=== PATIENT | male | born 1995 | race Two or more races ===

== ENCOUNTER 2022-10-14 09:05 | Emergency (ER) | payer OTHER ==
[~2022-10-14] VITALS: Ht 160 cm; Wt 86.6 kg
[2022-10-14] MEDS ORDERED: IV NS 0.9% 1,000 ML BAG IV ONE (09:30)
[2022-10-14 09:36] LABS: BASOPHILS % (AUTO) 0.7 % (0.0-2.0); EOSINOPHILS # (AUTO) 0.1 K/uL (0.0-0.7); EOSINOPHILS % (AUTO) 1.9 % (0.0-6.0); HEMATOCRIT 47 % (39-51); HEMOGLOBIN 15.9 g/dL (13.5-17.5); LYMPHOCYTES # (AUTO) 2.1 K/uL (0.8-4.8); LYMPHOCYTES % (AUTO) 33.8 % (20.0-44.0); MEAN CORPUSCULAR HEMOGLOBIN 29 PG (26.0-33.0); MEAN CORPUSCULAR HGB CONC 34 g/dl (31.0-36.0); MEAN CORPUSCULAR VOLUME 87 fL (80-96); MONOCYTES # (AUTO) 0.6 K/uL (0.1-1.30); MONOCYTES % (AUTO) 10.3 % (2.0-12.0); NEUTROPHILS # (AUTO) 3.3 K/uL (1.8-8.9); NEUTROPHILS % (AUTO) 53.3 % (43.0-81.0); PLATELET COUNT (AUTO) 316 K/uL (150-450); RED BLOOD CELL COUNT(AUTO) 5.39 MIL/uL (4.5-6.0); RED CELL DISTRIBUTION WIDTH 13.2 % (11.5-15.0); WHITE BLOOD COUNT (AUTO) 6.3 K/uL (4.3-11.0)
[2022-10-14 09:49] LABS: CALCIUM, SERUM 9.2 mg/dL (8.5-10.1); CARBON DIOXIDE 26 mmol/L (21-32); CHLORIDE 104 mmol/L (98-107); CREATININE 0.9 mg/dL (0.6-1.3); GLUCOSE 108 mg/dL (74-106); POTASSIUM 3.5 mmol/L (3.5-5.1); SODIUM SERUM 139 mmol/L (136-145); UREA NITROGEN, BLOOD 11 mg/dL (7-18)
[2022-10-14 09:53] LABS: MAGNESIUM 1.9 mg/dL (1.8-2.4); PHOSPHORUS 2.4 mg/dL (2.5-4.9)
[2022-10-14 10:03] LABS: THYROID STIMULATING HORMONE 1.178 uIU/mL (0.358-3.74)
[2022-10-14 10:56] VITALS: BP 110/68; TEMP 98.4; O2SAT 97
== END 2022-10-14 10:57 | disposition home or self-care (01) ==
LOC: ER 09:11
DX: R55 Syncope and collapse (principal); Z60.2 Problems related to living alone
CPT/HCPCS: 99285; 96360; 71045; 93005; 85025; 80048; 83735; 84100; 36415; 84443; 84484; 82962; J7030

== ENCOUNTER 2022-10-20 20:52 | Emergency (ER) | payer OTHER ==
[~2022-10-20] VITALS: Ht 160 cm; Wt 86.6 kg
[2022-10-20 21:53] LABS: BASOPHILS # (AUTO) 0.1 K/uL (0.0-0.2); BASOPHILS % (AUTO) 0.8 % (0.0-2.0); EOSINOPHILS # (AUTO) 0.1 K/uL (0.0-0.7); EOSINOPHILS % (AUTO) 1.2 % (0.0-6.0); HEMATOCRIT 50 % (39-51); HEMOGLOBIN 16.8 g/dL (13.5-17.5); LYMPHOCYTES # (AUTO) 1.9 K/uL (0.8-4.8); LYMPHOCYTES % (AUTO) 22.7 % (20.0-44.0); MEAN CORPUSCULAR HEMOGLOBIN 29 PG (26.0-33.0); MEAN CORPUSCULAR HGB CONC 34 g/dl (31.0-36.0); MEAN CORPUSCULAR VOLUME 86 fL (80-96); MONOCYTES # (AUTO) 0.9 K/uL (0.1-1.30); MONOCYTES % (AUTO) 10.9 % (2.0-12.0); NEUTROPHILS # (AUTO) 5.3 K/uL (1.8-8.9); NEUTROPHILS % (AUTO) 64.4 % (43.0-81.0); PLATELET COUNT (AUTO) 342 K/uL (150-450); RED BLOOD CELL COUNT(AUTO) 5.76 MIL/uL (4.5-6.0); WHITE BLOOD COUNT (AUTO) 8.3 K/uL (4.3-11.0)
[2022-10-20 22:06] LABS: CALCIUM, SERUM 9.8 mg/dL (8.5-10.1); CREATININE 1.1 mg/dL (0.6-1.3); POTASSIUM 3.3 mmol/L (3.5-5.1)
[2022-10-20 22:48] VITALS: BP 133/81; TEMP 98.7; O2SAT 100
== END 2022-10-20 22:48 | disposition home or self-care (01) ==
LOC: ER 20:54
DX: R00.2 Palpitations (principal); Z60.2 Problems related to living alone
CPT/HCPCS: 36415; 80048-TC; 85025-TC

== ENCOUNTER 2022-10-27 00:35 | Emergency (ER) | payer OTHER ==
[~2022-10-27] VITALS: Ht 160 cm; Wt 82.6 kg
[2022-10-27] MEDS ORDERED: ALPRAZOLAM 0.25 MG TABLET ONE (00:59)
[2022-10-27] MEDS ORDERED: ALPRAZOLAM 0.25 MG TABLET PO ONE (01:00)
[2022-10-27 01:17] VITALS: BP 141/83; TEMP 98; O2SAT 97
== END 2022-10-27 01:44 | disposition home or self-care (01) ==
LOC: ER 00:50
DX: F41.9 Anxiety disorder, unspecified (principal)

== ENCOUNTER 2022-11-28 12:28 | Emergency (ER) | payer OTHER ==
[~2022-11-28] VITALS: Ht 160 cm; Wt 77.1 kg
[2022-11-28] MEDS ORDERED: LORAZEPAM 1 MG TABLET ONE (12:41)
[2022-11-28] MEDS ORDERED: LORAZEPAM 1 MG TABLET PO ONE (13:00)
[2022-11-28 13:06] LABS: BASOPHILS % (AUTO) 0.5 % (0.0-2.0); EOSINOPHILS # (AUTO) 0.1 K/uL (0.0-0.7); EOSINOPHILS % (AUTO) 0.8 % (0.0-6.0); HEMATOCRIT 45 % (39-51); HEMOGLOBIN 15.8 g/dL (13.5-17.5); LYMPHOCYTES # (AUTO) 1.8 K/uL (0.8-4.8); LYMPHOCYTES % (AUTO) 20.6 % (20.0-44.0); MEAN CORPUSCULAR HEMOGLOBIN 29 PG (26.0-33.0); MEAN CORPUSCULAR HGB CONC 35 g/dl (31.0-36.0); MEAN CORPUSCULAR VOLUME 84 fL (80-96); MONOCYTES # (AUTO) 0.5 K/uL (0.1-1.30); MONOCYTES % (AUTO) 6.1 % (2.0-12.0); NEUTROPHILS # (AUTO) 6.4 K/uL (1.8-8.9); PLATELET COUNT (AUTO) 328 K/uL (150-450); RED BLOOD CELL COUNT(AUTO) 5.39 MIL/uL (4.5-6.0); RED CELL DISTRIBUTION WIDTH 13.5 % (11.5-15.0); WHITE BLOOD COUNT (AUTO) 8.8 K/uL (4.3-11.0)
[2022-11-28 13:12] LABS: CALCIUM, SERUM 9.8 mg/dL (8.5-10.1); CREATININE 1.1 mg/dL (0.6-1.3); POTASSIUM 3.7 mmol/L (3.5-5.1)
[2022-11-28 14:01] VITALS: BP 122/81; TEMP 98.4; O2SAT 100
== END 2022-11-28 15:30 ==
LOC: ER 12:28
DX: F41.9 Anxiety disorder, unspecified (principal)
CPT/HCPCS: 36415; 80048-TC; 85025-TC

== ENCOUNTER 2023-01-05 20:11 | Emergency (ER) | payer OTHER ==
[~2023-01-05] VITALS: Ht 160 cm; Wt 77.1 kg
[2023-01-05 22:21] VITALS: BP 128/97; TEMP 98
[2023-01-05 23:28] VITALS: O2SAT 96
== END 2023-01-05 23:29 | disposition left against medical advice (07) ==
LOC: ER 20:17
DX: F41.0 Panic disorder [episodic paroxysmal anxiety] (principal); Z53.21 Procedure and treatment not carried out due to patient leaving prior to being seen by health care provider

== ENCOUNTER 2023-03-06 11:39 | Emergency (ER) | payer OTHER | END 2023-03-06 13:40 | disposition left against medical advice (07) | LOC: ER 11:39 | DX: R20.0 Anesthesia of skin (principal); Z53.21 Procedure and treatment not carried out due to patient leaving prior to being seen by health care provider ==

== ENCOUNTER 2023-03-10 19:32 | Emergency (ER) | payer OTHER ==
[~2023-03-10] VITALS: Ht 160 cm; Wt 77.1 kg
[2023-03-10 20:51] VITALS: BP 144/80; TEMP 97.8; O2SAT 99
[2023-03-10] MEDS ORDERED: MAGN400T8 PO (21:10)
[2023-03-10] MEDS ORDERED: CALC-1029 PO (21:10)
== END 2023-03-10 22:10 | disposition home or self-care (01) ==
LOC: ER 19:35
DX: R00.2 Palpitations (principal); F41.9 Anxiety disorder, unspecified; F32.A Depression, unspecified; Z79.899 Other long term (current) drug therapy
CPT/HCPCS: 71045-TC

== ENCOUNTER 2023-04-15 01:55 | Emergency (ER) | payer OTHER ==
[~2023-04-15] VITALS: Ht 160 cm; Wt 83.0 kg
[~2023-04-15 01:55] MED LIST: CALC-1029 PO; MAGN400T8 PO
[2023-04-15 02:24] VITALS: BP 128/81; TEMP 98.6; O2SAT 98
== END 2023-04-15 03:19 | disposition home or self-care (01) ==
LOC: ER 01:56
DX: U07.1 COVID-19 (principal); F41.9 Anxiety disorder, unspecified; F32.A Depression, unspecified; Z79.899 Other long term (current) drug therapy

== ENCOUNTER 2023-06-03 08:46 | Emergency (ER) | payer OTHER ==
[~2023-06-03] VITALS: Ht 160 cm; Wt 83.0 kg
[2023-06-03] MEDS ORDERED: MECLIZINE HCL 25 MG TABLET ONE (09:20)
[2023-06-03] MEDS: IV NS 0.9% 1,000 ML BAG IV ONE (09:38)
[2023-06-03 09:39] LABS: BASOPHILS % (AUTO) 0.7 % (0.0-2.0); EOSINOPHILS # (AUTO) 0.1 K/uL (0.0-0.7); EOSINOPHILS % (AUTO) 1.7 % (0.0-6.0); HEMATOCRIT 46 % (39-51); HEMOGLOBIN 15.7 g/dL (13.5-17.5); LYMPHOCYTES # (AUTO) 1.4 K/uL (0.8-4.8); LYMPHOCYTES % (AUTO) 21.8 % (20.0-44.0); MEAN CORPUSCULAR HEMOGLOBIN 30 PG (26.0-33.0); MEAN CORPUSCULAR HGB CONC 34 g/dl (31.0-36.0); MEAN CORPUSCULAR VOLUME 87 fL (80-96); MONOCYTES # (AUTO) 0.6 K/uL (0.1-1.30); MONOCYTES % (AUTO) 8.8 % (2.0-12.0); NEUTROPHILS # (AUTO) 4.3 K/uL (1.8-8.9); PLATELET COUNT (AUTO) 305 K/uL (150-450); RED BLOOD CELL COUNT(AUTO) 5.28 MIL/uL (4.5-6.0); RED CELL DISTRIBUTION WIDTH 13.6 % (11.5-15.0); WHITE BLOOD COUNT (AUTO) 6.4 K/uL (4.3-11.0)
[2023-06-03] MEDS: MECLIZINE HCL 12.5 MG TABLET PO ONE (09:39)
[2023-06-03 09:46] LABS: CALCIUM, SERUM 8.9 mg/dL (8.5-10.1); CREATININE 0.9 mg/dL (0.6-1.3); POTASSIUM 3.9 mmol/L (3.5-5.1)
[2023-06-03 09:50] LABS: ERYTHROCYTE SEDIMENTATION RATE 2 MM/HR (0-15); MAGNESIUM 2.2 mg/dL (1.8-2.4); PHOSPHORUS 2.9 mg/dL (2.5-4.9)
[2023-06-03 10:00] LABS: THYROID STIMULATING HORMONE 1.439 uIU/mL (0.358-3.74)
[2023-06-03] MEDS ORDERED: MECL-159 PO (10:40)
[2023-06-03] MEDS ORDERED: ONDA4TAB5 PO (10:40)
[2023-06-03 11:37] VITALS: BP 118/90; TEMP 98.2; O2SAT 100
== END 2023-06-03 11:37 | disposition home or self-care (01) ==
LOC: ER 08:53
DX: R42 Dizziness and giddiness (principal); R11.2 Nausea with vomiting, unspecified; E86.0 Dehydration; F41.9 Anxiety disorder, unspecified; F32.A Depression, unspecified; Z86.16 Personal history of COVID-19
CPT/HCPCS: 99285; 96360; 70450; 71045; 93005; 85025; 80048; 83735; 84100; 85652; 36415; 84443; 82962; J8597; J7030